=== PATIENT | female | born 1930 | race Caucasian/White ===

== ENCOUNTER 2016-11-18 08:15 | Emergency (ER) | payer MEDICARE ==
[~2016-11-18] VITALS: Ht 157.5 cm; Wt 63.5 kg
[2016-11-18] MEDS ORDERED: HYDR25TA6 (08:21)
[2016-11-18] MEDS ORDERED: RAMI10CA (08:21)
[2016-11-18] MEDS ORDERED: ONDANSETRON 4MG/2ML VIAL (J2405) IV ONE (08:45)
[2016-11-18 09:09] LABS: BASO % 0.3 % (0.0-1.0); EOS # 0.1 K/mm3 (0.0-0.50); EOS % 0.5 % (0.0-3.0); LARGE UNSTAINED CELL # 0.2 K/mm3 (0.0-0.4); LARGE UNSTAINED CELL % 1.4 % (0.0-4.0); LYMPH # 1.7 K/mm3 (1.5-4.5); LYMPH % 14.8 % (24.0-44.0); MEAN CORPUSCULAR HEMOGLOBIN 29.8 pg (27.0-33.0); MEAN CORPUSCULAR HGB CONC 32.2 g/dl (32.0-36.5); MEAN CORPUSCULAR VOLUME 92.3 fl (80.0-96.0); MONO # 0.6 K/mm3 (0.0-0.8); MONO % 5.5 % (0.0-5.0); NEUTROPHILS # 8.8 K/mm3 (1.8-7.7); NEUTROPHILS % 77.6 % (36.0-66.0); PLATELET COUNT, AUTOMATED 364 k/mm3 (150-450); RED CELL DISTRIBUTION WIDTH 13.1 % (11.5-14.5); WHITE BLOOD COUNT 11.4 K/mm3 (4.0-10.0)
[2016-11-18 09:12] VITALS: BP 138/97
--- NOTE | 2016-11-18 09:32 | REP ---
CT abdomen and pelvis without IV or oral contrast: History: Right flank pain. Comparison radiographs are lumbar spine series from October 20, 2015. 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 The lung bases show mild linear fibrosis in the left base. Lung malik are otherwise clear in the bases. The liver and the spleen are normal in size, homogeneous in texture. There is a small accessory splenule lateral to the inferior tip of the spleen. No adrenal lesion is seen. There are clips in the gallbladder fossa. There is a large descending duodenal diverticulum. A small calcification is seen in the pancreatic tail. No other pancreatic abnormality is seen. Normal caliber aorta is observed. There are fairly advanced degenerative changes in the lumbar spine in addition to the scoliosis. There are two cysts in the upper pole right kidney, the largest of which measures 3.0 cm in greatest diameter. There is a large calculus at periphery of the right kidney at mid pole level. This is visible in retrospect on the September 2015 lumbar spine radiographs and is unchanged. It measures 1.1 cm. There is no hydronephrosis affecting either kidney. No calculus is noted on the left. No bladder calculus is seen. No uterine or adnexal pathology is observed. There is advanced diverticulosis involving the sigmoid colon and distal descending colon without CT evidence of diverticulitis. The appendix is surgically absent. There is diffuse osteopenia. Impression: Large calculus at the peripheral cortical margin of the right mid kidney without evidence of hydronephrosis on either side. No other urinary tract calculus seen. The appendix and gallbladder are surgically absent. There is left colonic diverticulosis. No other GI tract abnormality. Marked rotoscoliosis in the lumbar spine. Signed by Lanre Granado MD 11/18/2016 12:39 P
[2016-11-18 09:43] LABS: ALBUMIN 3.8 GM/DL (3.2-5.2); ALBUMIN/GLOBULIN RATIO 0.97 (1.00-1.93); ALKALINE PHOSPHATASE 58 U/L (45-117); ALT/SGPT 27 U/L (12-78); AMYLASE 68 U/L (25-115); ANION GAP 6 MEQ/L (8-16); AST/SGOT 20 U/L (15-37); BILIRUBIN,DIRECT 0.1 MG/DL (0.0-0.2); BILIRUBIN,TOTAL 0.5 MG/DL (0.2-1.0); BLOOD UREA NITROGEN 14 MG/DL (7-18); CALCIUM LEVEL 9.1 MG/DL (8.8-10.2); CARBON DIOXIDE LEVEL 31 MEQ/L (21-32); CHLORIDE LEVEL 102 MEQ/L (98-107); CREATININE FOR GFR 0.81 MG/DL (0.55-1.02); GLOMERULAR FILTRATION RATE > 60.0 (>32); GLUCOSE, FASTING 91 MG/DL (83-110); POTASSIUM SERUM 3.6 MEQ/L (3.5-5.1); SODIUM LEVEL 139 MEQ/L (136-145); TOTAL PROTEIN 7.7 GM/DL (6.4-8.2)
[2016-11-18] MEDS ORDERED: VALA1TAB PO (09:55)
== END 2016-11-18 10:06 | disposition home or self-care (01) ==
LOC: M ED 09:20
DX: R10.9 Unspecified abdominal pain (principal); M54.9 Dorsalgia, unspecified; B02.9 Zoster without complications; I10 Essential (primary) hypertension; Z85.118 Personal history of other malignant neoplasm of bronchus and lung; Z79.02 Long term (current) use of antithrombotics/antiplatelets; F17.210 Nicotine dependence, cigarettes, uncomplicated

== ENCOUNTER → 2016-12-16 | Outpatient (CLI) | payer MEDICARE ==
[~2016-12-16] MED LIST: HYDR25TA6; RAMI10CA; VALA1TAB PO
[2016-12-16 10:53] LABS: ALBUMIN 3.6 GM/DL (3.2-5.2); ALBUMIN/GLOBULIN RATIO 1.13 (1.00-1.93); ALKALINE PHOSPHATASE 50 U/L (45-117); ALT/SGPT 20 U/L (12-78); ANION GAP 8 MEQ/L (8-16); AST/SGOT 21 U/L (15-37); BILIRUBIN,TOTAL 0.5 MG/DL (0.2-1.0); BLOOD UREA NITROGEN 18 MG/DL (7-18); CALCIUM LEVEL 9.6 MG/DL (8.8-10.2); CARBON DIOXIDE LEVEL 31 MEQ/L (21-32); CHLORIDE LEVEL 102 MEQ/L (98-107); CHOLESTEROL LEVEL 172 MG/DL (<200); GLOMERULAR FILTRATION RATE > 60.0 (>32); GLUCOSE, FASTING 82 MG/DL (83-110); POTASSIUM SERUM 4.2 MEQ/L (3.5-5.1); SODIUM LEVEL 141 MEQ/L (136-145); TOTAL PROTEIN 6.8 GM/DL (6.4-8.2); TRIGLYCERIDES LEVEL 64 MG/DL (<150)
== END ==
LOC: M WUC 08:20
PROVIDERS: ATTEND Family Medicine
DX: E78.4 Other hyperlipidemia (principal); I11.9 Hypertensive heart disease without heart failure

== ENCOUNTER → 2016-12-16 | Outpatient (CLI) | payer MEDICARE ==
--- NOTE | 2016-12-16 09:12 | REP ---
Clinical: Pain. Technique: AP, lateral, bilateral oblique and sunrise views of the right knee. Findings: Advanced tricompartmental osteoarthritic degenerative changes are appreciated. Findings include osteophytosis, subchondral sclerosis, joint space narrowing and elements of chondrocalcinosis. No obvious acute fracture dislocation. Small chronic suprapatellar effusion with associated calcifications suggested on lateral radiograph. Impression: Advanced tricompartmental osteoarthritic degenerative changes. No obvious acute fracture or dislocation. Signed by Jesus Shell MD 12/16/2016 09:04 A
== END ==
LOC: M WUC 08:23
PROVIDERS: ATTEND Physician Assistant
DX: M17.11 Unilateral primary osteoarthritis, right knee (principal); Z79.899 Other long term (current) drug therapy; E78.4 Other hyperlipidemia; I11.9 Hypertensive heart disease without heart failure

== ENCOUNTER → 2017-10-18 | Outpatient (REF) | payer MEDICARE ==
[2017-10-18 19:59] LABS: HEMATOCRIT 36.6 % (36.0-47.0); HEMOGLOBIN 11.8 g/dl (12.0-16.0); MEAN CORPUSCULAR HEMOGLOBIN 30.3 pg (27.0-33.0); MEAN CORPUSCULAR HGB CONC 32.2 g/dl (32.0-36.5); MEAN CORPUSCULAR VOLUME 94.1 fl (80.0-96.0); PLATELET COUNT, AUTOMATED 373 10^3/uL (150-450); RED BLOOD COUNT 3.89 10^6/uL (4.00-5.40); RED CELL DISTRIBUTION WIDTH 14.6 % (11.5-14.5); WHITE BLOOD COUNT 9.1 10^3/uL (4.0-10.0)
[2017-10-18 20:31] LABS: ALBUMIN 3.8 GM/DL (3.2-5.2); ALBUMIN/GLOBULIN RATIO 1.09 (1.00-1.93); ALKALINE PHOSPHATASE 55 U/L (45-117); ALT/SGPT 18 U/L (12-78); ANION GAP 7 MEQ/L (8-16); AST/SGOT 24 U/L (7-37); BILIRUBIN,TOTAL 0.3 MG/DL (0.2-1.0); BLOOD UREA NITROGEN 18 MG/DL (7-18); CALCIUM LEVEL 9.7 MG/DL (8.8-10.2); CARBON DIOXIDE LEVEL 31 MEQ/L (21-32); CHLORIDE LEVEL 104 MEQ/L (98-107); CHOLESTEROL LEVEL 177 MG/DL (<200); CHOLESTEROL RISK RATIO 2.565 (<5); CREATININE FOR GFR 0.69 MG/DL (0.55-1.30); FREE T4 0.98 NG/DL (0.76-1.46); GLOMERULAR FILTRATION RATE > 60.0 (>32); GLUCOSE, FASTING 85 MG/DL (70-100); HDL CHOLESTEROL 69 MG/DL (>40); LDL CHOLESTEROL 82.8 MG/DL (<100); NON-HDL-C 108 MG/DL; POTASSIUM SERUM 4.4 MEQ/L (3.5-5.1); SODIUM LEVEL 142 MEQ/L (136-145); TOTAL PROTEIN 7.3 GM/DL (6.4-8.2); TRIGLYCERIDES LEVEL 126 MG/DL (<150)
== END ==
LOC: M SFHCADAM 10:29
DX: E78.4 Other hyperlipidemia (principal); I11.9 Hypertensive heart disease without heart failure; K21.9 Gastro-esophageal reflux disease without esophagitis; M70.62 Trochanteric bursitis, left hip
CPT/HCPCS: 84443

== ENCOUNTER → 2017-10-18 | Outpatient (CLI) | payer MEDICARE | LOC: M ADAMS 11:28 | DX: M16.12 Unilateral primary osteoarthritis, left hip (principal); M25.752 Osteophyte, left hip | CPT/HCPCS: 73502 ==

== ENCOUNTER → 2017-11-23 | Outpatient (CLI) | payer MEDICARE ==
[2017-11-23 12:48] LABS: C REACTIVE PROTEIN QUANTITATIV < 0.30 MG/DL (0.00-0.30)
[2017-11-23 12:48] LABS: RHEUMATOID FACTOR QUANT < 10.0 IU/ML (<15.0)
[2017-11-23 12:55] LABS: ERYTHROCYTE SEDIMENTATION RATE 37 mm/hr (0-42)
[2017-11-25 00:07] LABS: ANTINUCLEAR ANTIBODIES DIRECT Negative (Negative); Lyme Disease IgG/IgM Antibodie <0.91 ISR (0.00-0.90); Lyme Disease IgM Ab Quantitati <0.80 index (0.00-0.79)
== END ==
LOC: M WUC 09:00
DX: M16.12 Unilateral primary osteoarthritis, left hip (principal)
CPT/HCPCS: 86140

== ENCOUNTER 2018-04-17 09:30 | Outpatient (RCR) | payer MEDICARE | END 2018-04-30 | LOC: M PT 09:30 | DX: M17.10 Unilateral primary osteoarthritis, unspecified knee (principal) | CPT/HCPCS: 97110 ==

== ENCOUNTER 2018-05-01 15:29 | Outpatient (RCR) | payer MEDICARE | END 2018-05-31 | LOC: M PT 05-03 09:38 | DX: Z51.89 Encounter for other specified aftercare (principal); M17.10 Unilateral primary osteoarthritis, unspecified knee | CPT/HCPCS: 97110 ==

== ENCOUNTER 2018-06-02 14:34 | Outpatient (RCR) | payer MEDICARE | END 2018-06-30 | LOC: M PT 14:34 | DX: M17.0 Bilateral primary osteoarthritis of knee (principal) | CPT/HCPCS: 97110 ==

== ENCOUNTER → 2019-04-26 | Outpatient (REF) | payer MEDICARE ==
[~2019-04-26] MED LIST changes: -RAMI10CA; +RAMI1CAP26; -VALA1TAB PO; +VALA1TAB2 PO
== END ==
LOC: M LAB REF 12:16
PROVIDERS: ATTEND Physician Assistant
DX: R30.0 Dysuria (principal)

== ENCOUNTER 2019-12-12 05:15 | Emergency (ER) | payer MEDICARE ==
[~2019-12-12] VITALS: Ht 157.5 cm; Wt 62.7 kg
[~2019-12-12 05:15] MED LIST changes: -HYDR25TA6; +HYDR25TA6 PO; -VALA1TAB2 PO; +VALA1TAB5 PO
[2019-12-12] MEDS ORDERED: NS 500 ML IV ONE (06:30)
[2019-12-12] MEDS ORDERED: ONDANSETRON 4MG/2ML VIAL IV ONE (06:30)
[2019-12-12 06:43] LABS: BASO # 0.1 10^3/uL (0.0-0.2); BASO % 0.8 % (0.0-1.0); EOS # 0.1 10^3/uL (0.0-0.5); EOS % 0.8 % (0.0-3.0); HEMATOCRIT 36.6 % (36.0-47.0); HEMOGLOBIN 12.3 g/dl (12.0-15.5); LYMPH % 19.8 % (24.0-44.0); MEAN CORPUSCULAR HEMOGLOBIN 31.1 pg (27.0-33.0); MEAN CORPUSCULAR HGB CONC 33.6 g/dl (32.0-36.5); MEAN CORPUSCULAR VOLUME 92.4 fl (80.0-96.0); MONO % 9.8 % (0.0-5.0); NEUTROPHILS # 6.8 10^3/uL (1.5-8.5); NEUTROPHILS % 68.5 % (36.0-66.0); PLATELET COUNT, AUTOMATED 383 10^3/uL (150-450); RED BLOOD COUNT 3.96 10^6/uL (4.00-5.40); WHITE BLOOD COUNT 9.9 10^3/uL (4.0-10.0)
[2019-12-12 07:04] LABS: INR 0.99; PROTHROMBIN TIME 12.8 SECONDS (11.8-14.0)
[2019-12-12 07:05] LABS: PARTIAL THROMBOPLASTIN TIME 37.7 SECONDS (25.0-38.4)
[2019-12-12] MEDS ORDERED: ISOVUE-370 76% 100ML VIAL As Ordered ONE (07:05)
[2019-12-12 07:10] LABS: ALBUMIN 3.3 GM/DL (3.2-5.2); ALT/SGPT 23 U/L (12-78); BILIRUBIN,DIRECT 0.1 MG/DL (0.0-0.2); BILIRUBIN,TOTAL 0.4 MG/DL (0.2-1.0); CK-MB VALUE MASS 1.3 NG/ML (<3.6); CPK CREATINE PHOSPHOKINASE 74 U/L (26-192); LIPASE 134 U/L (73-393); MB/CK RELATIVE INDEX 1.76 (< OR =4); TROPONIN I < 0.02 NG/ML (< 0.10)
--- NOTE | 2019-12-12 07:35 | REPVR ---
PROCEDURE INFORMATION: Exam: CT Abdomen And Pelvis With Contrast Exam date and time: 12/12/2019 6:59 AM Age: 89 years old Clinical indication: Abdominal pain; Generalized; Additional info: Lower abd pain, diarrhea TECHNIQUE: Imaging protocol: Computed tomography of the abdomen and pelvis with intravenous contrast. Radiation optimization: All CT scans at this facility use at least one of these dose optimization techniques: automated exposure control; mA and/or kV adjustment per patient size (includes targeted exams where dose is matched to clinical indication); or iterative reconstruction. Contrast material: ISO; Contrast volume: 100 ml; Contrast route: AC; COMPARISON: CT ABD PELVIS W/O CONTRAST 11/18/2016 8:59 AM FINDINGS: Mild atelectatic changes in the posterior left lung base. Lung bases are otherwise clear. No pleural effusion. The liver, spleen, pancreas and adrenals are grossly normal. Gallbladder is surgically absent. Kidneys demonstrate symmetric function. There is a parenchymal calcification in the mid right kidney measuring up to 9 mm in diameter, unchanged. Cortical cyst in the upper right kidney measuring up to 2.8 cm, unchanged. No other renal abnormalities or obstructive uropathy. Atherosclerotic changes identified within the abdominal aorta and aortic branch vessels with no evidence of aneurysmal dilatation. There is a probable large duodenal diverticulum adjacent to the pancreatic head, unchanged. Small bowel loops are otherwise unremarkable. Moderate left-sided colonic diverticular changes. No evidence of diverticulitis. No evidence of enteric obstruction. No evidence of ventral or inguinal hernia. Pelvic organs are grossly normal. No significant free fluid in the abdomen or pelvis. Significant levoscoliosis of the lower thoracic and upper lumbar spine, similar to previous examination. Osseous structures are otherwise unremarkable for age. IMPRESSION: Moderate left-sided colonic diverticular changes with no evidence of diverticulitis. Nonobstructing parenchymal calcification in the right kidney, unchanged. No definite acute intra-abdominal or pelvic process. Additional nonemergent findings as described above. Electronically signed by: Earnest Monique On 12/12/2019 07:34:45 AM
[2019-12-12] MEDS ORDERED: SIME180C PO (08:37)
[2019-12-12 09:05] VITALS: BP 163/72
== END 2019-12-12 09:31 | disposition home or self-care (01) ==
LOC: M ED 05:15
DX: R10.9 Unspecified abdominal pain (principal); R19.7 Diarrhea, unspecified; I10 Essential (primary) hypertension; Z79.899 Other long term (current) drug therapy
CPT/HCPCS: 74177; 80047; 80076; 82550; 82553; 83605; 83690; 84484; 85025; 85610; 85730; 93041; 96361; 96374; 99284; J2405; Q9967

== ENCOUNTER → 2020-06-13 | Outpatient (REF) | payer MEDICARE ==
[~2020-06-13] MED LIST changes: +SIME180C PO
[2020-06-13 18:13] LABS: BASO # 0.1 10^3/uL (0.0-0.2); BASO % 0.8 % (0.0-1.0); EOS # 0.1 10^3/uL (0.0-0.5); HEMATOCRIT 37.6 % (36.0-47.0); HEMOGLOBIN 11.9 g/dl (12.0-15.5); LYMPH # 2.5 10^3/uL (1.5-5.0); LYMPH % 28.2 % (24.0-44.0); MEAN CORPUSCULAR HEMOGLOBIN 30.2 pg (27.0-33.0); MEAN CORPUSCULAR HGB CONC 31.6 g/dl (32.0-36.5); MEAN CORPUSCULAR VOLUME 95.4 fl (80.0-96.0); MONO # 0.8 10^3/uL (0.0-0.8); MONO % 9.4 % (0.0-5.0); NEUTROPHILS # 5.3 10^3/uL (1.5-8.5); NEUTROPHILS % 60.3 % (36.0-66.0); PLATELET COUNT, AUTOMATED 358 10^3/uL (150-450); RED BLOOD COUNT 3.94 10^6/uL (4.00-5.40); WHITE BLOOD COUNT 8.8 10^3/uL (4.0-10.0)
[2020-06-13 18:48] LABS: ALBUMIN 3.9 GM/DL (3.2-5.2); ALT/SGPT 18 U/L (12-78); BILIRUBIN,TOTAL 0.3 MG/DL (0.2-1.0); BLOOD UREA NITROGEN 15 MG/DL (7-18); CALCIUM LEVEL 9.7 MG/DL (8.8-10.2); CARBON DIOXIDE LEVEL 32 MEQ/L (21-32); CHLORIDE LEVEL 103 MEQ/L (98-107); CREATININE FOR GFR 0.75 MG/DL (0.55-1.30); FREE T4 0.94 NG/DL (0.76-1.46); GLOMERULAR FILTRATION RATE > 60.0 (>32); GLUCOSE, FASTING 119 MG/DL (70-100); POTASSIUM SERUM 4.4 MEQ/L (3.5-5.1); SODIUM LEVEL 139 MEQ/L (136-145); TOTAL PROTEIN 7.2 GM/DL (6.4-8.2)
[2020-06-13 19:00] LABS: ERYTHROCYTE SEDIMENTATION RATE 29 mm/hr (0-30)
== END ==
LOC: M SFHCADAM 12:20
PROVIDERS: ATTEND Physician Assistant
DX: K52.9 Noninfective gastroenteritis and colitis, unspecified (principal); Z79.899 Other long term (current) drug therapy
CPT/HCPCS: 80053; 83735; 84439; 84443; 85025; 85652; 86255; G0463

== ENCOUNTER → 2020-06-14 | Outpatient (REF) | payer MEDICARE | LOC: M LAB REF 11:21 | PROVIDERS: ATTEND Physician Assistant | DX: K52.9 Noninfective gastroenteritis and colitis, unspecified (principal) ==

== ENCOUNTER 2020-10-09 09:48 | Emergency (ER) | payer MEDICARE ==
[~2020-10-09] VITALS: Ht 160 cm; Wt 63.6 kg
[2020-10-09] MEDS ORDERED: HYDR-3490 (10:01)
[2020-10-09] MEDS ORDERED: ramipriL 5 MG CAP PO ONE (10:30)
[2020-10-09] MEDS ORDERED: ACETAMINOPHEN TAB 650MG DOSE (2X325MG) PO ONE (10:30)
[2020-10-09] MEDS ORDERED: traMADol 50 MG TAB PO ONE (10:30)
[2020-10-09 11:02] LABS: BASO # 0.1 10^3/uL (0.0-0.2); BASO % 0.6 % (0.0-1.0); EOS % 0.1 % (0.0-3.0); HEMATOCRIT 37.6 % (36.0-47.0); HEMOGLOBIN 12.5 g/dl (12.0-15.5); LYMPH # 1.1 10^3/uL (1.5-5.0); LYMPH % 12.9 % (24.0-44.0); MEAN CORPUSCULAR HEMOGLOBIN 30.6 pg (27.0-33.0); MEAN CORPUSCULAR HGB CONC 33.2 g/dl (32.0-36.5); MEAN CORPUSCULAR VOLUME 92.2 fl (80.0-96.0); MONO # 0.5 10^3/uL (0.0-0.8); MONO % 5.6 % (2.0-8.0); NEUTROPHILS % 80.5 % (36.0-66.0); PLATELET COUNT, AUTOMATED 333 10^3/uL (150-450); RED BLOOD COUNT 4.08 10^6/uL (4.00-5.40); WHITE BLOOD COUNT 8.7 10^3/uL (4.0-10.0)
[2020-10-09] MEDS ORDERED: ISOVUE-370 76% 100ML VIAL As Ordered ONE (11:40)
[2020-10-09] MEDS ORDERED: NS 500 ML IV ONE (11:40)
--- NOTE | 2020-10-09 12:02 | REP ---
INDICATION: back pain, non traumatic r/o vascular path. COMPARISON: 12/12/2019 TECHNIQUE: Axial contrast-enhanced images from the lung bases to the pubic symphysis using 100 cc Isovue 370 intravenous contrast material. Coronal and sagittal reformations obtained. This CT examination was performed using the following dose reduction techniques: Automated exposure control, adjustment of mA and/or kv according to the patient's size, and the use of iterative reconstruction technique. FINDINGS: Lung bases are clear. Visualized heart and pericardium normal. Liver, spleen, pancreas, bilateral adrenal glands and left kidney are normal. Right kidney includes 3 cm upper pole cyst and 10 mm nonobstructing calculus. The enteric system including stomach, small, and large bowel appears normal. No evidence for obstruction or acute inflammatory process. Normal terminal ileum and appendix are identified in the right lower quadrant. Diverticulosis noted without acute diverticulitis. Pelvis demonstrates normal bladder and age-appropriate uterus/adnexa. No ascites. No free air. No intraperitoneal or retroperitoneal adenopathy. Abdominal aorta and vasculature appear relatively normal. Musculoskeletal structures demonstrate age-related osteopenia, and chronic advanced scoliosis and degenerative changes. IMPRESSION: No acute abdominopelvic pathology appreciated. Diverticulosis without acute diverticulitis. Right renal cyst and nonobstructing calculus. <Electronically signed by Jesus Shell > 10/09/20 [id number]
[2020-10-09] MEDS ORDERED: ULTR50TA8 PO (12:35)
[2020-10-09] MEDS ORDERED: MIRA3350 PO (12:35)
[2020-10-09 13:20] VITALS: BP 170/90
== END 2020-10-09 13:23 | disposition home or self-care (01) ==
LOC: M ED 09:48
DX: M54.5 Low back pain (principal); M62.830 Muscle spasm of back; Z85.828 Personal history of other malignant neoplasm of skin; I10 Essential (primary) hypertension; K57.30 Diverticulosis of large intestine without perforation or abscess without bleeding; N20.0 Calculus of kidney; Z79.899 Other long term (current) drug therapy
CPT/HCPCS: 74177; 80047; 81001; 85025; 96360; 99284; Q9967

== ENCOUNTER → 2021-07-02 | Outpatient (CLI) | payer MEDICARE ==
[~2021-07-02] MED LIST changes: +HYDR-3490; +MIRA3350 PO; -SIME180C PO; +SIME180C25 PO; +ULTR50TA8 PO
--- NOTE | 2021-07-02 12:59 | DEXAMM ---
INDICATION: OSTEOPOROSIS. COMPARISON: 12/18/2010 as well as other prior exams. TECHNIQUE: Bone density was measured using dual-energy x-ray absorptiometry (DEXA). FINDINGS: AP SPINE L1-L4 BMD 1.384 g/cm2 Young Adult T-Score 1.5 Age Matched Z-Score 3.5. LT FEMUR, TOTAL BMD 0.940 g/cm2 Young Adult T-Score -0.5 Age Matched Z-Score 2.0. LT NECK BMD 1.044 g/cm2 Young Adult T-Score 0.0 Age Matched Z-Score 2.6. RT FEMUR, TOTAL BMD 0.854 g/cm2 Young Adult T-Score -1.2 Age Matched Z-Score 1.3. RT NECK BMD 0.887 g/cm2 Young Adult T-Score -1.1 Age Matched Z-Score 1.5. IMPRESSION: There is normal bone density of the spine. There is normal bone density of the left hip. There is low bone density of the right hip. The density of the spine has increased 3.7% since the initial exam on 12/01/2001. The density of the spine decreased 4.4% since most recent exam on 12/18/2010. The density of the left hip has increased 1.0% since initial exam on 12/01/2001. The density of the left hip has increased 1.1% since most recent exam on 12/18/2010. The density of the right hip has decreased 7.7% since the initial exam on 12/01/2001. The density of the right hip has decreased 4.7% since the most recent exam on 12/18/2010. FOLLOW-UP: Recommendation for the next bone density exam: 2 years. <Electronically signed by Tim Glover > 07/02/21 [id number]
== END ==
LOC: M WHC 10:25
PROVIDERS: ATTEND Physician Assistant
DX: M81.0 Age-related osteoporosis without current pathological fracture (principal); M85.851 Other specified disorders of bone density and structure, right thigh

== ENCOUNTER → 2021-12-23 | Outpatient (REF) | payer MEDICARE ==
[2021-12-23 17:02] LABS: HEMATOCRIT 36.8 % (36.0-47.0); HEMOGLOBIN 12.1 g/dl (12.0-15.5); MEAN CORPUSCULAR HEMOGLOBIN 30.6 pg (27.0-33.0); MEAN CORPUSCULAR HGB CONC 32.9 g/dl (32.0-36.5); MEAN CORPUSCULAR VOLUME 93.2 fl (80.0-96.0); PLATELET COUNT, AUTOMATED 343 10^3/uL (150-450); RED BLOOD COUNT 3.95 10^6/uL (4.00-5.40); WHITE BLOOD COUNT 9.2 10^3/uL (4.0-10.0)
[2021-12-23 17:17] LABS: ALBUMIN 3.7 GM/DL (3.2-5.2); ALT/SGPT 22 U/L (12-78); BILIRUBIN,TOTAL 0.4 MG/DL (0.2-1.0); BLOOD UREA NITROGEN 23 MG/DL (7-18); CALCIUM LEVEL 9.9 MG/DL (8.8-10.2); CARBON DIOXIDE LEVEL 30 MEQ/L (21-32); CHLORIDE LEVEL 104 MEQ/L (98-107); CHOLESTEROL LEVEL 170 MG/DL (<200); CHOLESTEROL RISK RATIO 2.151 (<5); CREATININE FOR GFR 0.74 MG/DL (0.55-1.30); FREE T4 0.99 NG/DL (0.76-1.46); GLOMERULAR FILTRATION RATE > 60.0 (>32); GLUCOSE, FASTING 86 MG/DL (70-100); HDL CHOLESTEROL 79 MG/DL (>40); LDL CHOLESTEROL 76 MG/DL (<100); NON-HDL-C 91 MG/DL; POTASSIUM SERUM 4.3 MEQ/L (3.5-5.1); SODIUM LEVEL 140 MEQ/L (136-145); TOTAL PROTEIN 7.1 GM/DL (6.4-8.2); TRIGLYCERIDES LEVEL 76 MG/DL (<150)
[2021-12-23 17:20] LABS: TOTAL 25(OH) VITAMIN D 54.3 NG/ML (30.0-100.0)
== END ==
LOC: M SFHCADAM 12:08
PROVIDERS: ATTEND Physician Assistant
DX: M81.0 Age-related osteoporosis without current pathological fracture (principal); I11.9 Hypertensive heart disease without heart failure; E78.2 Mixed hyperlipidemia